=== PATIENT | male | born 1940 | race Caucasian/White ===

== ENCOUNTER 2017-03-10 13:35 | Inpatient (IN) | payer OTHER ==
[~2017-03-10] VITALS: Ht 180.3 cm; Wt 122.0 kg
[~2017-03-10 13:35] MED LIST: ADULT LOW DOSE81 MG PO; ALLOPURINOL 30300 M2 PO; CALCIUM 600 +1 EAC7 PO; CARDIZEM CD180 MG PO; CARDIZEM CD240 MG PO; COMBIGAN EYE DR10 ML OPHTHALMIC; COUMADIN 2 MG TA2 M1 PO; COUMADIN 3 MG TA3 MG PO; COUMADIN 4 MG TA4 M1 PO; HYDROCHLOROTHIA25 M1 PO; HYDROCHLOROTHIA25 M2 PO; KLOR-CON 10 ER10 MEQ PO; LUMIGAN2.5 M1 OP; NEURONTIN 300300 M1 PO; XALATAN2.5 ML OPHTHALMIC; ZESTRIL PO; ZESTRIL40 MG PO; [UNRECOGNIZED DRUG - REMARK] PO
[2017-03-10 13:46] VITALS: BP 106/64
[2017-03-10 14:17] LABS: HEMATOCRIT 42.8 % (42.0-52.0); HEMOGLOBIN 14.2 gm/dL (14.0-18.0); MCH 29.2 pg (26.0-34.0); MCHC 33.1 g/dL (28.0-37.0); MCV 88.1 fL (80.0-100.0); MPV 8.3 fl. (7.2-11.1); NUCLEATED RBCS 0 /100WBC; PLATELET COUNT* 168 thou/uL (150-400); RBC 4.86 mil/uL (4.50-6.00); RDW-CV 15.1 % (10.5-14.5); WBC 15.6 thou/uL (4.0-11.0)
[2017-03-10 14:25] LABS: CALCIUM 9.5 mg/dL (8.5-10.1); CREATININE 1.4 mg/dL (0.6-1.3); POTASSIUM 3.8 mmol/L (3.5-5.1)
[2017-03-10 14:30] LABS: ALBUMIN 3.2 g/dL (3.4-5.0); TOTAL BILIRUBIN 4.4 mg/dL (<0.1-1.0); TOTAL PROTEIN 6.6 g/dL (6.4-8.2)
[2017-03-10 14:32] LABS: ABSOLUTE LYMPHOCYTES 1.6 thou/uL (0.8-5.3); ABSOLUTE MONOCYTES 0.3 thou/uL (0.0-1.2); ABSOLUTE NEUTROPHILS 13.7 thou/uL (1.6-8.1); METAMYELOCYTES 1 %; PLATELET ESTIMATE ADEQUATE
--- NOTE | 2017-03-10 15:02 | NUR ---
KWADWO NOTIFIED UPON PT RETURN FROM CT. PT WAS NOT CONNECTED TO MONITOR HE WAS NOT CONNECTED PRIOR TO GOING TO CT.
[2017-03-10 15:46] LABS: INR 3.5; PROTIME 33.4 Seconds (9.20-11.50)
[2017-03-10 16:35] LABS: URINE BILIRUBIN NEGATIVE (Negative); URINE BLOOD NEGATIVE (Negative); URINE CLARITY CLEAR; URINE COLOR YELLOW; URINE GLUCOSE-RANDOM NEGATIVE (Negative); URINE KETONES NEGATIVE (Negative); URINE LEUKOCYTES-REFLEX NEGATIVE (Negative); URINE NITRITE-REFLEX NEGATIVE (Negative); URINE PROTEIN NEGATIVE (Negative)
--- NOTE | 2017-03-10 20:35 | NUR ---
FRESH FROZEN PLASMA STARTED AT 1856. SEE CHART FOR DOCUMENTATION
[2017-03-10 20:44] LABS: INR 2.3
[2017-03-10 21:52] VITALS: BP 124/74
[2017-03-10 22:18] VITALS: BP 109/65
[2017-03-10 22:42] VITALS: BP 105/56; BP 123/75
[2017-03-10 23:39] VITALS: BP 115/68; BP 118/66; BP 123/75
[2017-03-11 03:48] LABS: ABSOLUTE EOSINOPHILS 0.2 thou/uL (0.0-0.7); ABSOLUTE LYMPHOCYTES 0.8 thou/uL (0.8-5.3); ABSOLUTE MONOCYTES 0.8 thou/uL (0.0-1.2); ABSOLUTE NEUTROPHILS 10.1 thou/uL (1.6-8.1); BASOPHILS 0.3 %; EOSINOPHILS 1.5 %; HEMATOCRIT 38.6 % (42.0-52.0); HEMOGLOBIN 12.7 gm/dL (14.0-18.0); LYMPHOCYTES 6.7 %; MCV 87.9 fL (80.0-100.0); MONOCYTES 6.5 %; MPV 8.5 fl. (7.2-11.1); NUCLEATED RBCS 0 /100WBC; PLATELET COUNT* 158 thou/uL (150-400); RBC 4.39 mil/uL (4.50-6.00); RDW-CV 14.7 % (10.5-14.5); WBC 11.9 thou/uL (4.0-11.0)
[2017-03-11 04:05] LABS: INR 1.9; PROTIME 18.8 Seconds (9.20-11.50)
[2017-03-11 04:15] LABS: ALBUMIN 3.2 g/dL (3.4-5.0); CALCIUM 9.3 mg/dL (8.5-10.1); POTASSIUM 3.3 mmol/L (3.5-5.1); TOTAL BILIRUBIN 3.5 mg/dL (<0.1-1.0); TOTAL PROTEIN 5.9 g/dL (6.4-8.2)
[2017-03-11 05:48] VITALS: BP 109/65
--- NOTE | 2017-03-11 06:35 | NUR ---
PATIENT ARRIVED TO UNIT AT 2157. VITALS STABLE. RA. ALERT AND ORIENTED. ORIENTED TO ROOM AND STAFF. TWO UNITS OF FFPS WERE INFUSED WITHOUT DIFFICULTY. NPO. UP SBA. FLUIDS INFUSING PER ORDER. HAS MILD ABOMINAL PAIN BUT DENIES THE NEED FOR MEDICATION. SURGERY SCHEDULED FOR 10:30 THIS MORNING. DENIES NAUSEA. EDUCATED ABOUT FALL AGREEMENT. SKIN INTACT. MULTIPLE BRUISED NOTED. HOURLY ROUNDS. NURSING WILL CONTINUE TO MONITOR.
[2017-03-11 07:50] VITALS: BP 121/76
[2017-03-11 08:20] VITALS: BP 129/76; BP 138/76
[2017-03-11 09:15] LABS: INR 1.9; PROTIME 17.9 Seconds (9.20-11.50)
[2017-03-11 10:05] VITALS: BP 142/69
[2017-03-11 14:24] LABS: BE -5.6 mmol/L (-2 to +3); HCO3 23.6 mmol/L (22.0-26.0); PO2 116.8 mmHg (75.0-100.0)
[2017-03-11 14:30] LABS: PCO2 62.3 mmHg (35.0-45.0); pH 7.197 (7.340-7.450)
[2017-03-11 15:15] LABS: BE -1.4 mmol/L (-2 to +3); HCO3 24.5 mmol/L (22.0-26.0); PCO2 45.9 mmHg (35.0-45.0); PO2 64.7 mmHg (75.0-100.0); pH 7.346 (7.340-7.450)
[2017-03-11 15:51] LABS: HEMATOCRIT 39.8 % (42.0-52.0)
[2017-03-11 16:04] LABS: INR 1.7; PROTIME 16.7 Seconds (9.20-11.50)
[2017-03-11 21:40] VITALS: BP 123/78
[2017-03-12 00:13] VITALS: BP 118/71
[2017-03-12 03:58] VITALS: BP 124/74
[2017-03-12 04:33] LABS: INR 1.8; PROTIME 17.8 Seconds (9.20-11.50)
[2017-03-12 04:43] LABS: HEMATOCRIT 36.1 % (42.0-52.0); MCH 29.5 pg (26.0-34.0); MCHC 33.4 g/dL (28.0-37.0); MCV 88.5 fL (80.0-100.0); MPV 9.1 fl. (7.2-11.1); RBC 4.08 mil/uL (4.50-6.00); RDW-CV 14.7 % (10.5-14.5); WBC 11.5 thou/uL (4.0-11.0)
[2017-03-12 04:58] LABS: ALBUMIN 2.8 g/dL (3.4-5.0); CALCIUM 8.9 mg/dL (8.5-10.1); MAGNESIUM 1.9 mg/dL (1.8-2.4); POTASSIUM 4.2 mmol/L (3.5-5.1); TOTAL BILIRUBIN 2.1 mg/dL (<0.1-1.0); TOTAL PROTEIN 5.6 g/dL (6.4-8.2)
--- NOTE | 2017-03-12 05:15 | NUR ---
PATIENT ALERT AND ORIENTED. VITALS STABLE. ON 3.5 LITERS OF OXYGEN. CAPNO IN PLACE. ABDOMINAL DRESSING C/D/I. MARTHA DRAIN IN PLACE. JAMES TO DEPENDENT DRAINAGE. NPO. ICECHIPS PROVIDED. DENIES PAIN AND NAUSEA. HOURLY ROUNDS. NURSING WILL CONTINUE TO MONITOR.
[2017-03-12 08:15] VITALS: BP 143/78
[2017-03-12 09:19] VITALS: BP 141/81
[2017-03-12 16:23] VITALS: BP 136/80
--- NOTE | 2017-03-12 16:47 | NUR ---
CM ASSESSMENT: VISITED WITH PT IN ROOM. PT STATES HE AND HIS LIVE WITH THEIR DAUGHTER. HE DRIVES AND PERFORMS HIS OWN ADLS. DENIES A PREFERENCE FOR HH IF IT IS ORDERED. PT DOES NOT USE ANY DME
--- NOTE | 2017-03-12 19:28 | NUR ---
PATIENT REMAINED ALERT AND ORIENTED X'S 4. VITAL SIGNS AND SPO2 STABLE. IV CLEAN, FLUIDS INFUSING. PAIN WELL CONTROLLED WITH PAIN MEDS. COMPLETED PT/OT. TOLERATED ICE CHIPS, NO NAUSEA AND VOMITING. COMPLETED HOURLY ROUNDING. CALL LIGHT WITHIN REACH, WILL CONTINUE TO MONITOR.
[2017-03-12 23:46] VITALS: BP 121/85
[2017-03-13 03:40] VITALS: BP 139/83
[2017-03-13 04:39] LABS: HEMATOCRIT 35.1 % (42.0-52.0); HEMOGLOBIN 11.5 gm/dL (14.0-18.0); MCH 29.3 pg (26.0-34.0); MCHC 32.8 g/dL (28.0-37.0); MCV 89.3 fL (80.0-100.0); RBC 3.93 mil/uL (4.50-6.00); RDW-CV 14.9 % (10.5-14.5); WBC 9.7 thou/uL (4.0-11.0)
--- NOTE | 2017-03-13 04:51 | NUR ---
PATIENT ORIENTED X4. MEDICATED FOR PAIN WITH GOOD EFFECT REPORTED. LAP SITES TO ABDOMEN DRY AND INTACT WITH MARTHA DRAIN IN PLACE. JAMES CATHETER PATENT, DARK YELLOW RETURN. IVF INFUSING ORDERED. TOLERATING CLEAR LIQUIDS. VITALS STABLE ON ROOM AIR. WILL CONTINUE TO MONITOR.
[2017-03-13 05:00] LABS: INR 1.8; PROTIME 17.3 Seconds (9.20-11.50)
[2017-03-13 05:13] LABS: ALBUMIN 2.5 g/dL (3.4-5.0); CALCIUM 9.2 mg/dL (8.5-10.1); CREATININE 0.9 mg/dL (0.6-1.3); MAGNESIUM 2.1 mg/dL (1.8-2.4); PHOSPHORUS* 2.2 mg/dL (2.5-4.9); TOTAL BILIRUBIN 0.6 mg/dL (<0.1-1.0)
[2017-03-13 14:09] VITALS: BP 145/92
--- NOTE | 2017-03-13 14:14 | S ---
[address] [address] SURGICAL PATH RPT PROCEDURE Name: ESTHER MCARTHUR Room: [address] IN .R.#: [id number] Admission: 03/12/17 Date of : 40 Discharge: Report #: [id number] Path Case #: [id number] PATHOLOGY REPORT COLLECTION DATE: 03/11/2017 RECEIVED DATE: 03/12/2017 SUBMITTING PHYS: Dr. Mark Anthony Ritchie OTHER PHYS: Dr. Soni Emanuel SPECIMEN(S) RECEIVED: A.Appendix B.Umbilical hernia sac * * * * * * * * * * * * FINAL DIAGNOSIS: A. Appendix: - Acute gangrenous appendicitis, periappendicitis and serositis. B. Umbilical hernia sac: - Benign fibrofatty tissue with mild chronic inflammation. (VALENTINE:pit; 03/13/2017) PATHOLOGIST: Fer Gerber M.D. REPORT ELECTRONICALLY SIGNED BY: Fer Gerber M.D. DATE/TIME: 03/13/2017 14:14 * * * * * * * * * * * * GROSS PATHOLOGY: A. Received in formalin labeled "Esther Mcarthur appendix," is an appendix measuring 6.5 cm in length and 0.9 cm in diameter with a abundant amount of attached mesoappendix. The serosal surface is coleman-brown, ragged, and shows multiple defects. Sectioning reveals a dilated and possibly perforated lumen containing brown fecal material. [employer] sections are submitted as follows: A1: Proximal margin and bisected tip A2: [employer] cross sections showing possible perforation B. Received in formalin labeled "Esther Mcarthur, umbilical hernia," is a piece of fibroadipose tissue measuring 2.4 x 1.8 x 1.3 cm. No nodules or lesions are identified. [employer] tissue is submitted in cassette B1. (SDY; 03/12/2017) CLINICAL HISTORY: Acute appendicitis INITIAL CPT CODE(S): [place] [address] SURGICAL PATH RPT PROCEDURE Name: ESTHER MCARTHUR Eusebio Room: [address] IN .R.#: [id number] Admission: 03/12/17 Date of : 40 Discharge: Report #: [id number] Path Case #: [id number]; [id number] B; [id number] Professional services performed by [facility] at [facility], [address] [place] [id number]. Technical services performed by [facility] at [address] [place] [address], [address], [place] [address]. [facility] [address] [place] [address] PHONE: [phone] DIRECTOR: Jone Hoang M.D. * * * END OF REPORT * * *
[2017-03-13 16:07] VITALS: BP 112/71
--- NOTE | 2017-03-13 17:10 | NUR ---
PATIENT REMAINED ALERT AND ORIENTED X'S 4. VITAL SIGNS AND SPO2 STABLE. IV CLEAN, FLUIDS INFUSING. HAD SOME PAIN IN ABDOMEN AREA THROUGHOUT SHIFT. PAIN MEDS GIVEN, PAIN SUBSIDED TO TOLERABLE LEVEL. TOLERATED DIET, NO NAUSEA AND VOMITING. ANTIBIOTICS GIVEN. JAMES WAS PULLED OUT A LITTLE, UROLOGY CAME TO HOSPITAL TO ADJUSTED JAMES AND PUT BACK INTO PLACE. URINE DARK YELLOW. 200 OUT OF MARTHA DRAIN. COMPLETED HOURLY ROUNDING. CALL LIGHT WITHIN REACH. WILL CONTINUE TO MONITOR.
[2017-03-13 20:00] VITALS: BP 117/100
[2017-03-14 00:09] VITALS: BP 136/82
--- NOTE | 2017-03-14 04:05 | NUR ---
PATIENT ORIENTED X 4 ON HOURLY ROUNDS. MEDICATED FOR PAIN X1 WITH GOOD EFFECT REPORTED. LAP SITES TO ABDOMEN ARE DRY AND INTACT WITH MARTHA DRAIN IN PLACE. JAMES CATHETER PATENT, ZEHRA RETURN. PROCAL INFUSING ORDERED. TOLERATING DIET. VITALS SIGNS STABLE ON ROOM AIR. WILL CONTINUE TO MONITOR.
[2017-03-14 04:20] VITALS: BP 143/79
[2017-03-14 05:37] LABS: HEMATOCRIT 37.1 % (42.0-52.0); HEMOGLOBIN 12.3 gm/dL (14.0-18.0); MCH 29.3 pg (26.0-34.0); MCV 88.6 fL (80.0-100.0); MPV 8.4 fl. (7.2-11.1); RBC 4.19 mil/uL (4.50-6.00); RDW-CV 14.7 % (10.5-14.5)
[2017-03-14 05:45] LABS: INR 1.7; PROTIME 16.9 Seconds (9.20-11.50)
[2017-03-14 06:13] LABS: ALBUMIN 2.4 g/dL (3.4-5.0); CALCIUM 9.2 mg/dL (8.5-10.1); CREATININE 0.9 mg/dL (0.6-1.3); POTASSIUM 3.4 mmol/L (3.5-5.1); TOTAL BILIRUBIN 0.5 mg/dL (<0.1-1.0); TOTAL PROTEIN 5.6 g/dL (6.4-8.2)
--- NOTE | 2017-03-14 15:54 | NUR ---
PT.MAY NEED HOME HEALTH AT DISCHARGE FOR NURSING AND P.T. HE WOULD WANT TO USE [facility].
[2017-03-14 16:00] VITALS: BP 129/70
--- NOTE | 2017-03-14 16:12 | NUR ---
DISCHARGE DATE UNKNOWN. PT.MAY BENEFIT FROM HOME HEALTH. IF NEEDED HE WOULD LIKE TO USE [facility]-NURSING AND P.T.
--- NOTE | 2017-03-14 18:25 | NUR ---
PATIENT REMAINED ALERT AND ORIENTED X'S 4. VITAL SIGNS AND SPO2 STABLE. IV CLEAN, FLUSHING, INTACT. PATIENT HAD BEEN CONSTIPATED, GAVE MIRALAX AND COLACE. PATIENT THEN HAD A BOUT OF DIARRHEA, HE NOW REFUSES FUTURE STOOL SOFTENERS. JAMES INTACT, BUT THERE IS SOME CRUSTED BLOOD AROUND THE ENTRANCE OF THE URETHRA. URINE ZEHRA COLORED. TOLERATED DIET, NO NAUSEA AND VOMITING. MARTHA DRAIN IN PLACE. LAP SITES CLEAN, DRY, INTACT. COMPLETED HOURLY ROUNDING, CALL LIGHT WITHIN REACH. WILL CONTINUE TO MONITOR.
[2017-03-14 19:50] VITALS: BP 138/84
[2017-03-15 00:37] VITALS: BP 115/76
[2017-03-15 04:15] VITALS: BP 151/81
[2017-03-15 04:27] LABS: HEMATOCRIT 38.8 % (42.0-52.0); HEMOGLOBIN 12.8 gm/dL (14.0-18.0); MCH 29.2 pg (26.0-34.0); MCHC 32.9 g/dL (28.0-37.0); MCV 88.7 fL (80.0-100.0); MPV 8.5 fl. (7.2-11.1); RBC 4.37 mil/uL (4.50-6.00); RDW-CV 15.1 % (10.5-14.5); WBC 8.8 thou/uL (4.0-11.0)
[2017-03-15 04:36] LABS: CALCIUM 9.9 mg/dL (8.5-10.1); MAGNESIUM 1.6 mg/dL (1.8-2.4); POTASSIUM 3.5 mmol/L (3.5-5.1)
[2017-03-15 04:51] LABS: INR 1.5; PROTIME 14.8 Seconds (9.20-11.50)
--- NOTE | 2017-03-15 05:53 | NUR ---
PATIENT ALERT AND ORIENTED. VITALS STABLE. RA. UP WITH ASSIST X 1 TO BATHROOM. PAIN CONTROLLED WITH PO MEDICATION. DENIES NAUSEA. MARTHA IN PLACE WITH SEROUS FLUID. JAMES TO DEPENDENT DRAINAGE, URINE ZEHRA. REPORTS A BOWEL MOVEMENT DURING MY SHIFT. HOURLY ROUNDS. NURSING WILL CONTINUE TO MONITOR.
[2017-03-15 08:11] VITALS: BP 139/86
--- NOTE | 2017-03-15 10:12 | NUR ---
If Pt needs HH at me, fax orders, facesheet and H&P to [facility] at [phone], p:[phone], for nursing and PT services.
[2017-03-15 16:19] VITALS: BP 141/78
--- NOTE | 2017-03-15 18:32 | NUR ---
ASSUMED CARE OF PATIENT AFTER MORNING REPORT. ALERT AND ORIENTED X4. ASSESSMENT COMPLETED AND CHARTED. VSS ON ROOM AIR. PATIENT HAS HAD NO COMPLAINTS OF NAUSEA THIS SHIFT. PAIN HAS BEEN MANAGED WITH PAIN MEDICATION. POTASSIUM AND MAGNESIUM HAVE BEEN REPLACED ORDERED. ANTIBIOTICS INFUSED ORDRED. PATIENT RESTED IN BED OR IN THE RECLINER THIS SHIFT. HOURLY ROUNDS HAVE BEEN MAINTAINED. CALL LIGHT IS WITHIN REACH. NURSING WILL CONTINUE TO MONITOR.
[2017-03-15 20:00] VITALS: BP 139/82
[2017-03-15 21:10] LABS: MAGNESIUM 1.7 mg/dL (1.8-2.4); POTASSIUM 3.5 mmol/L (3.5-5.1)
[2017-03-15 23:53] VITALS: BP 131/82
[2017-03-16 04:33] LABS: INR 1.6; PROTIME 15.4 Seconds (9.20-11.50)
--- NOTE | 2017-03-16 05:30 | NUR ---
ASSUMED CARE OF PATIENT AT APPROXIMATELY 1999. PATIENT A/O X 4 AND VSS. PATIENT CONTINUES TO BE ON STRICT I/O. JAMES CATHETER IN PLACE X 2 WEEKS, PER SURGERY. PATIENT HAD MULTIPLE BMs ON 03/15/17. PATIENT'S 3 LAP SITES C/D/I WITH BRUISING TO SURROUNDING AREA. PATIENT OXYGEN SATS WELL ABOVE 93% ON RA. PATIENT UP WITH 1 AND A WALKER/GAIT BELT TO [facility] OR TOILET. MARTHA DRAIN INTACT WITH SEROUS DRAINAGE OUTPUT. PATIENT SCHEDULED FOR DISCHARGE TODAY (03-16-17) TO HOME. NURSING TO FOLLOW-UP NECESSARY. ALL FALL PRECAUTIONS IN PLACE, INCLUDING CALL LIGHT WITHIN REACH. WILL CONTINUE TO MONITOR CLOSELY.
[2017-03-16 07:58] VITALS: BP 134/79
[2017-03-16 14:24] VITALS: BP 134/79
[2017-03-16] MEDS ORDERED: FLAGYL500 MG PO (15:04)
[2017-03-16] MEDS ORDERED: LEVAQUIN 500 M500 M2 PO (15:05)
[2017-03-16 15:09] VITALS: BP 134/79
--- NOTE | 2017-03-16 16:45 | NUR ---
ASSUMED CARE OF PATIENT AFTER MORNING REPORT. ALERT AND ORIENTED X4. ASSESSMENT COMPLETED AND CHARTED. VSS ON ROOM AIR. PATIENT HAS HAD NO COMPLAINTS OF PAIN OR NAUSEA THIS SHIFT. ANTIBIOTICS INFUSED ORDRED. PATIENT WORKED WELL WITH THERAPY TODAY. PATIENT AND FAMILY MEMBER EDUCATED ON JAMES CARE AND HOW TO CHANGE FROM STANDARD DRAINAGE BAG TO LEG BAG. PATIENT DISCHARGED AT 1630. PRESCRIPTIONS AND DISCHARGE INFORMATION SENT WITH PATIENT UPON DISCHARGE.
--- NOTE | 2017-05-27 10:58 | OP ---
[address] [address] OPERATIVE REPORT Name: ESTHER LANG Room: [address] IN .R.#: [id number] Admission: 03/12/17 Attend Phys: Soni Amaral MD Discharge: 03/16/17 Date of : 40 Report #: [id number] THIS REPORT FOR: //name// CC: Benito Amaral DATE OF SERVICE: 03/11/2017 PREOPERATIVE DIAGNOSES: Acute appendicitis with a history of deep venous thrombosis and pulmonary embolism, on anticoagulation. POSTOPERATIVE DIAGNOSES: Acute ruptured appendicitis and peritonitis. PROCEDURE: Laparoscopic appendectomy. SURGEON: Mark Anthony Ritchie DO. BASKET WEAVER: Thom Elizabeth DO. ANESTHESIA: General endotracheal. ESTIMATED BLOOD LOSS: Less than 50 mL. COMPLICATIONS: None. INDICATIONS FOR PROCEDURE: This is a 76-year-old gentleman who presented to the Emergency Room with acute onset of right lower quadrant abdominal pain. He was noted to have a CT scan, which was suggestive of acute appendicitis; however, he was also on Coumadin and we were unable to perform surgery because his INR was too high, so he was given fresh frozen plasma and vitamin K. The fresh frozen plasma did not reduce his INR enough, so he is given 2 more packets of fresh frozen plasma before he was finally able to undergo surgery. DESCRIPTION OF PROCEDURE: After obtaining proper consents and discussing risks and complications with the patient, he was taken to the operating room, laid on the supine position, administered general anesthesia. He was then prepped and draped in the usual fashion. A supraumbilical skin incision was made with a #11 scalpel blade. This was carried down through the skin into the subcutaneous tissue using electrocautery for hemostasis. Once the fascia was encountered, it was incised along the midline, grasped and elevated with [facility] clamps and divided further. The peritoneum was then bluntly opened using a hemostat. A finger was placed inside the peritoneal cavity to assure that there were no melissa-incisional adhesions. Next, two 0 Vicryl sutures were placed in a esnory-ps-omkia fashion to secure the Eliot trocar, which was then inserted and insufflation was begun. Once insufflation was complete, [place] [address] OPERATIVE REPORT Name: ESTHER LANG Room: [address]#: [id number] Admission: 03/12/17 Attend Phys: Soni Amaral MD Discharge: 03/16/17 Date of : 40 Report #: [id number] of the anterior abdominal organs was performed. This revealed an inflammatory mass in the right lower quadrant. There did appear to be some purulent fluid in that area as well. We elected to proceed with laparoscopic appendectomy at this point and a 5 mm trocar was placed in the suprapubic position and a 12 mm trocar was placed in the left lower quadrant. We were then able to take down the adhesions of the omentum to the abdominal wall. The omentum was then swept away from the cecum and we did identify what appeared to be the appendix, which was walled off and did appear to be ruptured with periappendiceal abscess. The abscess cavity was entered and we immediately suctioned the fluid back. We then identified the entire appendix. The mesoappendix was sequentially clamped and divided using the Harmonic scalpel until the appendix was only attached at its base. The base appeared normal, so we elected to proceed with an Endo-SHANTA ligation. We inserted a 45 mm 3.5 mm Endo-SHANTA load and the appendix was divided at its base. We then placed the appendix into an Endopouch. I then copiously irrigated the abdominal cavity with approximately 4 liters of saline solution. We did place a 15-Romanian Surinder-Solares drain down along the pelvis and into the right lower quadrant and along the right pericolic gutter. This was placed through the 5 mm suprapubic port. We then stopped the insufflation. All air was released. Trocars were removed. The drain was sutured in place using 2-0 nylon suture. The umbilical fascia was closed using interrupted 0 Vicryl sutures in a pszsmg-[id number] fashion. Then, the skin incisions were all closed using 4-0 Monocryl subcuticular stitches. Mastisol, Steri-Strips, sterile OpSite and pressure dressings were placed after the patient was injected with 0.5% Marcaine without epinephrine. The patient tolerated the procedure well and was awakened in the operating room and transported to recovery room in stable condition. <ELECTRONICALLY SIGNED> By: Mark Anthony Ritchie DO 05/27/17 1058 1426 [id number] Ritchie DO /nt
== END 2017-03-16 16:30 | disposition home or self-care (01) | DRG 338 ==
LOC: M.ERS 13:35 → M.TBA-ER 16:35 → M.ORTHSURG 16:35
PROVIDERS: Anesthesiology; Family Medicine; Nurse Practitioner Family; Physician Assistant; Surgery; ADMIT Internal Medicine
PROC: 0DTJ4ZZ Resection of Appendix, Percutaneous Endoscopic Approach (ICD-10-PCS; principal; 2017-03-11)
PROC: 0WQF4ZZ Repair Abdominal Wall, Percutaneous Endoscopic Approach (ICD-10-PCS; 2017-03-11)
PROC: 0TCB8ZZ Extirpation of Matter from Bladder, Via Natural or Artificial Opening Endoscopic (ICD-10-PCS; 2017-03-11)
PROC: 30233L1 Transfusion of Nonautologous Fresh Plasma into Peripheral Vein, Percutaneous Approach (ICD-10-PCS; 2017-03-11)
PROC: 30233K1 Transfusion of Nonautologous Frozen Plasma into Peripheral Vein, Percutaneous Approach (ICD-10-PCS; 2017-03-11)
DX: K35.2 Acute appendicitis with generalized peritonitis (principal); J96.00 Acute respiratory failure, unspecified whether with hypoxia or hypercapnia; N17.9 Acute kidney failure, unspecified; D68.59 Other primary thrombophilia; K42.0 Umbilical hernia with obstruction, without gangrene; R65.10 Systemic inflammatory response syndrome (SIRS) of non-infectious origin without acute organ dysfunction; I10 Essential (primary) hypertension; N35.9 Urethral stricture, unspecified; E88.09 Other disorders of plasma-protein metabolism, not elsewhere classified; Z98.42 Cataract extraction status, left eye; Z79.899 Other long term (current) drug therapy; Z98.41 Cataract extraction status, right eye; Z28.21 Immunization not carried out because of patient refusal; Z85.46 Personal history of malignant neoplasm of prostate; Z86.718 Personal history of other venous thrombosis and embolism; Z86.711 Personal history of pulmonary embolism

== ENCOUNTER → 2018-01-19 | Outpatient (CLI) | payer OTHER ==
[~2018-01-19] MED LIST changes: +FLAGYL500 MG PO; +LEVAQUIN 500 M500 M2 PO
--- NOTE | 2018-01-19 15:20 | 2DMMODE ---
[place] [address] 2 D/M-MODE ECHOCARDIOGRAM Name: ESTHER LANG Room: [facility]#: [id number] Admission: 01/19/18 Attend Phys: Hussain Song, Discharge: Date of : 40 Date of Service: 01/19/18 1520 Report #: [id number] THIS REPORT FOR: //name// APPROVED REPORT Study performed: 01/19/2018 08:11:08 EXAM: Comprehensive 2D, Doppler, and color-flow Echocardiogram Patient Location: Out-Patient Status: routine BSA: 2.44 HR: 59 bpm BP: 140/95 mmHg Other Information Study Quality: Good Indications Aortic Valve Disease Hypertension/HDD 2D Dimensions IVSd: 13.42 (7-11mm) LVOT Diam: 20.71 (18-24mm) LVDd: 49.64 mm PWd: 12.08 (7-11mm) Ascending Ao: 40.77 (22-36mm) LVDs: 26.55 (25-40mm) Aortic Root: 33.21 mm Volumes Left Atrial Volume (Systole) LA ESV Index: 14.10 mL/m2 Aortic Valve AoV Peak Carlos.: 2.68 m/s AO Peak Gr.: 28.66 mmHg LVOT Max P.42 mmHg AO Mean Gr.: 17.81 mmHg LVOT Mean P.24 mmHg LVOT Max V: 1.05 m/s AO V2 VTI: 62.01 cm LVOT Mean V: 0.69 m/s CHASITY (VTI): 1.36 cm2 LVOT V1 VTI: 24.97 cm Mitral Valve E/A Ratio: 0.64 MV Decel. Time: 248.63 ms MV E Max Cralos.: 0.59 m/[place] [address] 2 D/M-MODE ECHOCARDIOGRAM Name: ESTHER LANG Room: [facility]#: [id number] Admission: 01/19/18 Attend Phys: Hussain Song, Discharge: Date of : 40 Date of Service: 01/19/18 1520 Report #: [id number] MV PHT: 72.10 ms MVA (PHT): 3.05 cm2 TDI E/Lateral E': 9.83 E/Medial E': 8.43 Medial E' Carlos.: 0.07 m/s Lateral E' Carlos.: 0.06 m/s Pulmonary Valve PV Peak Carlos.: 1.00 m/s PV Peak Gr.: 3.99 mmHg Left Ventricle The left ventricle is normal size. There is normal LV segmental wall motion. Mild concentric left ventricular hypertrophy. Left ventricular systolic function is normal. The left ventricular ejection fraction is within the normal range. LVEF is 65%. Grade I - abnormal relaxation pattern. Right Ventricle The right ventricle is normal size. The right ventricular systolic function is normal. Atria The left atrium size is normal. The right atrium size is normal. Aortic Valve Aortic valve is calcified. Trace to mild aortic regurgitation. Mild aortic stenosis. Mitral Valve The mitral valve is normal in structure. Mild mitral regurgitation. No evidence of mitral valve stenosis. Tricuspid Valve The tricuspid valve is normal in structure. There is no tricuspid valve regurgitation noted. Pulmonic Valve Pulmonic valve is not well visualized. There is no pulmonic valvular regurgitation. Great Vessels Aortic root is mildly dilated. IVC [place] [address] 2 D/M-MODE ECHOCARDIOGRAM Name: ESTHER LANG Room: [facility]#: [id number] Admission: 01/19/18 Attend Phys: Hussain Song, Discharge: Date of : 40 Date of Service: 01/19/18 1520 Report #: [id number] Pericardium There is no pericardial effusion. <Conclusion> Mild concentric left ventricular hypertrophy. LVEF is 65%. Mild aortic stenosis. Trace to mild aortic regurgitation. Mild mitral regurgitation. <ELECTRONICALLY SIGNED> By: Jordy Black MD, [facility] 01/19/18 1520 1520 19 Jordy Black MD, FACC /INF
== END ==
LOC: M.CRD 07:24
DX: I51.7 Cardiomegaly (principal); I35.0 Nonrheumatic aortic (valve) stenosis; I34.0 Nonrheumatic mitral (valve) insufficiency

== ENCOUNTER → 2019-06-02 | Outpatient (CLI) | payer MEDICARE ==
--- NOTE | 2019-06-02 16:47 | CARDNUC ---
[place] [address] CARDIAC NUCLEAR IMAGING REPORT Name: ESTHER LANG Room: [facility]#: [id number] Admission: 06/02/19 Attend Phys: Jyothi Yañez, Discharge: Date of : 40 Date of Service: 06/02/19 1645 Report #: [id number] THIS REPORT FOR: cc: Benito Emanuel MD, Bruce D. MD Liston, Michael J. MD [facility] ~ APPROVED REPORT Study performed: 06/02/2019 09:30:03 Exam: Nuclear Stress Test Indication: Pre-Operative CV evaluation Patient Location: Out-Patient Stress Tech: Jory Putnam Stress Nurse: Matilda Ferraro RN Ht: 6 ft 0 in Wt: 278 lbs BSA: 2.45 m2 BMI: 37.69 Medical History Medical History: HTN, Valvular heart disease Medications: diltiazem hcta, lisinopril, kor con warfarin Allergies: baclofen, cyclbenzaprine, gabapentin, lidocaine, kepoprosen Cardiac Risk Factors: Age, HTN Exercise History: Indeterminate Stress Test Details Stress Test: Pharmacologic stress testing performed using 0.4 mg of regadenoson per 5 mL given IV over 10 seconds. Reason for pharmacologic stress test: physical limitation. HR Resting HR: 61 bpm Max Heart Rate (APMHR): 142 bpm Max HR Achieved: 79 bpm Target HR (85% APMHR): 120 bpm % of APMHR: 55 Recovery HR: 75 bpm BP Resting BP: 108/75 mmHg Max BP: 118/72 mmHg ECG Resting ECG: [place] [address] CARDIAC NUCLEAR IMAGING REPORT Name: ETSHER LANG Room: [facility]#: [id number] Admission: 06/02/19 Attend Phys: Jyothi Yañez, Discharge: Date of : 40 Date of Service: 06/02/19 1645 Report #: [id number] Stress ECG: Sinus Rhythm ST Change: None Arrhythmia: None Recovery ECG: Sinus Rhythm Recovery ST Change: None Recovery Arrhythmia: None Clinical Reason for Termination: Completed protocol Exercise duration: 0 min sec Exercise capacity: 1 METs The patient tolerated Lexiscan infusion without significant cardiac symptoms. Nurse Comments pt unable to walk treadmill dt bad knees Stress ECG Conclusion The baseline 12-lead EKG show sinus rhythm without significant ST segment or T wave abnormality. EKGs obtained during and post Lexiscan infusion show sinus rhythm with no significant ST segment or T wave changes when compared to baseline. There were no stress-induced arrhythmias. NM EXAM: Myocardial Perfusion REST/STRESS Imaging Protocol: Rest Tc-99m/Stress Tc-99m 1 day Resting Data Rest SPECT myocardial perfusion imaging was performed in supine position 30 minutes following the intravenous injection of 10.1 mCi of Tc-99m Sestamibi. Time of rest injection: 07:50 The images were gated to evaluate regional wall motion and calculate left ventricular ejection fraction. Administration Route: IV Administration Site: Right Hand Pharmacologic Stress Pharmacologic stress test was performed by injecting Regadenoson 0.4 mg IV push followed by the intravenous injection of 31.1 mCi of Tc-99m Sestamibi. Time of stress injection: 09:35 Administration Route: IV Administration Site: Right Hand Heart Rate at time of stress injection: 79 bpm. Gated Stress SPECT was performed 40 [place] [address] CARDIAC NUCLEAR IMAGING REPORT Name: ESTHER LANG Room: [facility]#: [id number] Admission: 06/02/19 Attend Phys: Jyothi Yañez, Discharge: Date of : 40 Date of Service: 06/02/19 1645 Report #: [id number] injection. The images were gated to evaluate regional wall motion and calculate left ventricular ejection fraction. Prone imaging was performed. Study Quality Study: Good Artifact: No artifact Study Data At rest, the left ventricular ejection fraction was 71%.. Post stress, the left ventricular ejection was 74%.. TID = 1.11. Perfusion Perfusion images obtained at rest and post Lexiscan stress show uniform uptake of the radioisotope throughout the myocardium without defect. Wall Motion Normal left ventricular wall motion. Nuclear Conclusion ECG Findings: negative for ischemia Clinical Findings: negative for ischemia Nuclear Findings: negative for ischemia Exercise Capacity: not assessed Left Ventricular Function: normal Risk Study: low Perfusion images show no defect to suggest infarct or ischemia. Left ventricular systolic function appears normal on gated studies. This is a low risk study. <Conclusion> The baseline 12-lead EKG show sinus rhythm without significant ST segment or T wave abnormality. EKGs obtained during and post Lexiscan infusion show sinus rhythm with no significant ST segment or T wave changes when compared to baseline. There were no stress-induced arrhythmias. <ELECTRONICALLY SIGNED> By: Hussain Song MD, FACC 06/02/19 1645 44 44 Hussain Song MD, FACC /INF
== END ==
LOC: M.NUC 05-24 16:18
DX: I35.0 Nonrheumatic aortic (valve) stenosis (principal); E66.09 Other obesity due to excess calories; Z68.39 Body mass index [BMI] 39.0-39.9, adult

== ENCOUNTER 2019-07-31 22:34 | Emergency (ER) | payer MEDICARE ==
[~2019-07-31] VITALS: Ht 180.3 cm; Wt 123.4 kg
[2019-07-31] MEDS ORDERED: FISH OIL 1,0001 EAC9 PO (22:49)
[2019-07-31] MEDS ORDERED: OXYBUTYNIN 5 MG5 M2 PO (22:49)
[2019-07-31] MEDS ORDERED: DORZOLAMIDE 2%10 ML OPHTHALMIC (22:50)
[2019-07-31 23:41] LABS: ABSOLUTE BASOPHILS 0.1 thou/uL (0.0-0.2); ABSOLUTE EOSINOPHILS 0.5 thou/uL (0.0-0.7); ABSOLUTE LYMPHOCYTES 1.4 thou/uL (0.8-5.3); ABSOLUTE MONOCYTES 0.6 thou/uL (0.0-1.2); ABSOLUTE NEUTROPHILS 5.1 thou/uL (1.6-8.1); BASOPHILS 1.3 %; EOSINOPHILS 6.5 %; HEMOGLOBIN 15.1 gm/dL (14.0-18.0); LYMPHOCYTES 18.8 %; MCHC 34.2 g/dL (28.0-37.0); MCV 90.6 fL (80.0-100.0); MONOCYTES 7.4 %; MPV 8.1 fl. (7.2-11.1); NUCLEATED RBCS 0 /100WBC; PLATELET COUNT* 203 thou/uL (150-400); RBC 4.86 mil/uL (4.50-6.00); RDW-CV 15.5 % (10.5-14.5); WBC 7.7 thou/uL (4.0-11.0)
[2019-07-31 23:52] LABS: INR 2.6; PROTIME 25.6 Seconds (9.20-11.50)
[2019-07-31 23:53] LABS: CALCIUM 9.6 mg/dL (8.5-10.1); CREATININE 1.1 mg/dL (0.6-1.3); POTASSIUM 3.6 mmol/L (3.5-5.1)
[2019-08-01 00:03] LABS: ALBUMIN 3.5 g/dL (3.4-5.0); TOTAL BILIRUBIN 0.9 mg/dL (<0.1-1.0); TOTAL PROTEIN 7.2 g/dL (6.4-8.2)
[2019-08-01 01:33] LABS: URINE BILIRUBIN NEGATIVE (Negative); URINE BLOOD NEGATIVE (Negative); URINE CLARITY CLEAR; URINE COLOR YELLOW; URINE GLUCOSE-RANDOM NEGATIVE (Negative); URINE KETONES NEGATIVE (Negative); URINE LEUKOCYTES-REFLEX NEGATIVE (Negative); URINE NITRITE-REFLEX NEGATIVE (Negative); URINE PROTEIN NEGATIVE (Negative); URINE SPECIFIC GRAVITY <= 1.005 (1.005-1.030); URINE UROBILINOGEN 0.2 E.U./dl (0.2-1.0)
[2019-08-01 02:29] VITALS: BP 151/85
== END 2019-08-01 02:31 | disposition home or self-care (01) ==
LOC: M.ERS 22:34
PROVIDERS: Emergency Medicine
DX: S39.011A Strain of muscle, fascia and tendon of abdomen, initial encounter (principal); I10 Essential (primary) hypertension; Z85.46 Personal history of malignant neoplasm of prostate; X50.1XXA Overexertion from prolonged static or awkward postures, initial encounter; Y93.89 Activity, other specified; Y92.89 Other specified places as the place of occurrence of the external cause; Y99.8 Other external cause status

== ENCOUNTER → 2020-07-25 | Outpatient (CLI) | payer MEDICARE ==
[~2020-07-25] MED LIST changes: +DORZOLAMIDE 2%10 ML OPHTHALMIC; +FISH OIL 1,0001 EAC9 PO; +OXYBUTYNIN 5 MG5 M2 PO
--- NOTE | 2020-07-25 13:45 | 2DMMODE ---
[place] [address] 2 D/M-MODE ECHOCARDIOGRAM Name: ESTHER LANG Room: [facility]#: [id number] Admission: 07/25/20 Attend Phys: Jyothi Yañez, Discharge: Date of : 40 Date of Service: 07/25/20 1345 Report #: [id number] THIS REPORT FOR: cc: Benito Emanuel MD, Bruce D. MD Liston, Michael J. MD [facility] ~ APPROVED REPORT Study performed: 07/25/2020 07:50:04 EXAM: Comprehensive 2D, Doppler, and color-flow Echocardiogram Patient Location: Out-Patient BSA: 2.35 HR: 60 bpm BP: 140/95 mmHg Other Information Study Quality: Good Indications Aortic Valve Disease 2D Dimensions IVSd: 10.34 (7-11mm) LVOT Diam: 20.29 (18-24mm) LVDd: 51.50 mm PWd: 10.98 (7-11mm) Ascending Ao: 38.83 (22-36mm) LVDs: 26.21 (25-40mm) Aortic Root: 36.03 mm Volumes Left Atrial Volume (Systole) LA ESV Index: 14.10 mL/m2 Aortic Valve AoV Peak Carlos.: 2.78 m/s AO Peak Gr.: 30.93 mmHg LVOT Max P.84 mmHg AO Mean Gr.: 17.11 mmHg LVOT Mean P.47 mmHg LVOT Max V: 0.84 m/s AO V2 VTI: 61.71 cm LVOT Mean V: 0.56 m/s CHASITY (VTI): 0.99 cm2 LVOT V1 VTI: 18.86 cm AI Bibb: 1.87 m/s2 AI PHT: 596.06 [place] [address] 2 D/M-MODE ECHOCARDIOGRAM Name: ESTHER LANG Room: [facility]#: [id number] Admission: 07/25/20 Attend Phys: Jyothi Yañez, Discharge: Date of : 40 Date of Service: 07/25/20 1345 Report #: [id number] Mitral Valve E/A Ratio: 0.68 MV Decel. Time: 319.08 ms MV E Max Carlos.: 0.72 m/s MV PHT: 92.53 ms MVA (PHT): 2.38 cm2 TDI E/Lateral E': 9.00 E/Medial E': 8.00 Medial E' Carlos.: 0.09 m/s Lateral E' Carlos.: 0.08 m/s Pulmonary Valve PV Peak Carlos.: 1.06 m/s PV Peak Gr.: 4.52 mmHg Tricuspid Valve RAP Estimate: 5.00 mmHg TR Peak Gr.: 19.77 mmHg RVSP: 24.77 mmHg PA Pressure: 24.77 mmHg Left Ventricle The left ventricle is normal size. There is normal LV segmental wall motion. There is normal left ventricular wall thickness. Left ventricular systolic function is normal. LVEF is 60-65%. Grade I - abnormal relaxation pattern. Right Ventricle The right ventricle is normal size. The right ventricular systolic function is normal. Atria The left atrium size is normal. The right atrium size is normal. Aortic Valve Moderate aortic valve sclerosis. Mild aortic regurgitation. Moderate to severe aortic stenosis. Mitral Valve The mitral valve is normal in structure. Mild mitral regurgitation. No evidence of mitral valve stenosis. Tricuspid Valve The tricuspid valve is normal in structure. Mild [place] [address] 2 D/M-MODE ECHOCARDIOGRAM Name: ESTHER LANG Room: [facility]#: [id number] Admission: 07/25/20 Attend Phys: Jyothi Yañez, Discharge: Date of : 40 Date of Service: 07/25/20 1345 Report #: [id number] Pulmonic Valve The pulmonary valve is normal in structure. There is no pulmonic valvular regurgitation. Great Vessels The aortic root is normal in size. The ascending aorta is mildly dilated. (3.88 cm) IVC is normal in size and collapses >50% with inspiration. Pericardium There is no pericardial effusion. <Conclusion> The left ventricle is normal size. There is normal left ventricular wall thickness. Left ventricular systolic function is normal. LVEF is 60-65%. Grade I - abnormal relaxation pattern. Moderate aortic valve sclerosis. Mild aortic regurgitation. Moderate to severe aortic stenosis. Mild mitral regurgitation. Mild tricuspid regurgitation. IVC is normal in size and collapses >50% with inspiration. The ascending aorta is mildly dilated. (3.88 cm) <ELECTRONICALLY SIGNED> By: Hussain Song MD, FACC 07/25/20 1345 1345 1345 Hussain Song MD, FACC /INF
== END ==
LOC: M.CRD 07:56
PROVIDERS: ATTEND Internal Medicine
DX: I08.3 Combined rheumatic disorders of mitral, aortic and tricuspid valves (principal)

== ENCOUNTER 2021-04-01 11:30 | Emergency (ER) | payer BC ==
[~2021-04-01] VITALS: Ht 180.3 cm; Wt 117.0 kg
[2021-04-01] MEDS ORDERED: DORZOLAMIDE 2%10 ML OPHTHALMIC (11:43)
[2021-04-01] MEDS ORDERED: FLOMAX0.4 MG PO (11:43)
[2021-04-01 12:50] LABS: NUCLEATED RBCS 0 /100WBC
[2021-04-01 12:51] LABS: HEMATOCRIT 44.1 % (42.0-52.0); HEMOGLOBIN 14.6 gm/dL (14.0-18.0); MCHC 33.2 g/dL (28.0-37.0); MCV 90.5 fL (80.0-100.0); MPV 9.1 fl. (7.2-11.1); PLATELET COUNT* 182 thou/uL (150-400); RBC 4.88 mil/uL (4.50-6.00); RDW-CV 15.6 % (10.5-14.5); WBC 8.1 thou/uL (4.0-11.0)
[2021-04-01 13:01] LABS: CALCIUM 9.2 mg/dL (8.5-10.1); CREATININE 1.2 mg/dL (0.6-1.3); POTASSIUM 3.8 mmol/L (3.5-5.1)
[2021-04-01 13:06] LABS: ALBUMIN 3.6 g/dL (3.4-5.0); TOTAL PROTEIN 6.9 g/dL (6.4-8.2)
--- NOTE | 2021-04-01 13:17 | EKG ---
[place] [address] ELECTROCARDIOGRAM REPORT Name: ESTHER LANG Room: [facility]#: [id number] Admission: 04/01/21 Attend Phys: Discharge: Date of : 40 Date of Service: 04/01/21 1224 Report #: [id number] THIS REPORT FOR: //name// [facility] ED Test Date: 2021-04-01 Test Time: 12:24:06 Pat Name: ESTHER LANG Department: Room: Gender: Ward Attendant: : 1940 Requested By: Renny Arevalo Order Number: [id number] MD: Hussain Song Measurements Intervals [place] Rate: 66 P: 44 OK: 292 QRS: 40 QRSD: 160 T: 75 QT: 403 QTc: 423 Interpretive Statements Sinus rhythm Prolonged OK interval Compared to ECG 01/11/2010 16:36:18 Atrial premature complex(es) no longer present Myocardial infarct finding no longer present Electronically Signed On 04-01-2021 13:16:51 BIOMEDICAL ENGINEERING TECHNOLOGIST by Hussain Song [email or web address] <ELECTRONICALLY SIGNED> By: Hussain Song MD, FACC 04/01/21 1316 1224 1224 Hussain Song MD, [facility] /EPI
[2021-04-01 13:18] LABS: INR 3.5; PROTIME 34.3 Seconds (9.20-11.50)
[2021-04-01 13:46] LABS: ABSOLUTE LYMPHOCYTES 0.4 thou/uL (0.8-5.3)
[2021-04-01 13:47] LABS: ABSOLUTE EOSINOPHILS 0.2 thou/uL (0.0-0.7); ABSOLUTE MONOCYTES 0.4 thou/uL (0.0-1.2); PLATELET ESTIMATE ADEQUATE
[2021-04-01 15:03] VITALS: BP 118/68
== END 2021-04-01 15:04 | disposition home or self-care (01) ==
LOC: M.ERS 11:30
PROVIDERS: Emergency Medicine Emergency Medical Services
DX: I95.1 Orthostatic hypotension (principal); I10 Essential (primary) hypertension; Z98.890 Other specified postprocedural states; Z85.46 Personal history of malignant neoplasm of prostate; Z79.899 Other long term (current) drug therapy; Z79.01 Long term (current) use of anticoagulants; Z88.1 Allergy status to other antibiotic agents; Z88.8 Allergy status to other drugs, medicaments and biological substances; Z88.4 Allergy status to anesthetic agent